=== PATIENT | male | born 1970 | race African-American/Black ===

== ENCOUNTER 2024-03-15 11:49 | Emergency (ER) | payer MEDICAID, OTHER ==
[~2024-03-15] VITALS: Ht 195.6 cm; Wt 113.0 kg
[2024-03-15 11:51] VITALS: O2SAT 98
[2024-03-15 14:08] LABS: BASOPHILS % 0.2 % (0.0-2.0); EOSINOPHILS % 0.8 % (0.0-5.0); HEMATOCRIT. 30.7 % (42.0-52.0); HEMOGLOBIN. 10.5 g/dL (14.0-18.0); LYMPHOCYTES % 26.6 % (20.0-50.0); MEAN CORPUSCULAR HEMOGLOBIN 30.8 pg (28.0-32.0); MEAN CORPUSCULAR HGB CONC 34.3 g/dL (31.0-37.0); MEAN CORPUSCULAR VOLUME 89.8 fL (80.0-94.0); MEAN PLATELET VOLUME 10.2 fl (7.4-10.4); NEUTROPHILS % 61.4 % (40.0-76.0); PLATELET 185 x1000/uL (130-400); RED BLOOD CELL COUNT 3.41 mill/uL (4.7-6.1); RED CELL DISTRIBUTION WIDTH 15.2 % (11.6-14.6); WHITE BLOOD COUNT 5.5 x1000/uL (4.5-11.0)
[2024-03-15 14:09] LABS: CHLORIDE 110 mEq/L (98-107); POTASSIUM 3.4 mEq/L (3.5-5.1); SODIUM 140 mEq/L (136-145)
[2024-03-15 14:10] LABS: CARBON DIOXIDE 23 mEq/L (21-32)
[2024-03-15 14:11] LABS: CALCIUM 9.3 mg/dL (8.7-10.4)
[2024-03-15 14:15] LABS: CREATININE 1.1 mg/dL (0.6-1.3)
[2024-03-15 14:16] LABS: GLUCOSE 100 mg/dL (70-105); UREA NITROGEN BLOOD 9 mg/dL (9-23)
[2024-03-15 14:19] VITALS: BP 141/90; PULSE 80; RESP 16; TEMP 36.89184; O2SAT 100
[2024-03-15 14:21] LABS: ETHANOL BLOOD < 10 mg/dL (<10)
[2024-03-15] MEDS: SODIUM CHLORIDE 0.9% 1,000 ML IV ONE (14:41)
[2024-03-15] MEDS: LEVETIRACETAM 1000MG PREMIX 100 ML IV ONE (14:41)
[2024-03-15] MEDS: LEVETIRACETAM 500MG TABLET PO SCH (14:43)
== END 2024-03-16 | disposition home or self-care (01) ==
LOC: ER 11:49
DX: R56.9 Unspecified convulsions (principal); I10 Essential (primary) hypertension
CPT/HCPCS: 80048; 80307; 80329; 80320; 85025; 36415; 96365; 99284; J1953; J7030; Z7610 ×2; G0480